=== PATIENT | female | born 1950 | race Caucasian/White ===

== ENCOUNTER 2018-04-17 18:09 | Emergency (ER) | payer MEDICARE, BC ==
[~2018-04-17] VITALS: Ht 162.6 cm; Wt 68.0 kg
[2018-04-17 18:18] VITALS: BP 154/73
== END 2018-04-17 19:16 | disposition home or self-care (01) ==
LOC: ER 18:09
DX: S52.592A Other fractures of lower end of left radius, initial encounter for closed fracture (principal); S63.592A Other specified sprain of left wrist, initial encounter; G89.29 Other chronic pain; M79.7 Fibromyalgia; W19.XXXA Unspecified fall, initial encounter; Y93.89 Activity, other specified; Y92.89 Other specified places as the place of occurrence of the external cause; Y99.9 Unspecified external cause status
CPT/HCPCS: 29125; 73110; 99284

== ENCOUNTER 2018-10-15 08:44 | Observation (INO) | payer MEDICARE, BC ==
[~2018-10-15] VITALS: Ht 162.6 cm; Wt 64.5 kg
[2018-10-15 09:26] LABS: BASOPHILS % (AUTO) 0.6 % (0-1); EOSINOPHILS # (AUTO) 0.1 X10'3 (0-0.9); EOSINOPHILS % (AUTO) 1.8 % (0-6); HEMATOCRIT 40.6 % (35.0-45.0); HEMOGLOBIN 13.4 g/dl (12.0-16.0); LYMPHOCYTES # (AUTO) 1.4 X10'3 (1.1-4.8); LYMPHOCYTES % (AUTO) 26.9 % (21-51); MEAN CORPUSCULAR HGB CONC 33.1 g/dL (33.0-36.5); MEAN CORPUSCULAR VOLUME 87.5 FL (78-98); MEAN PLATELET VOLUME 8.1 FL (7.4-10.4); MONOCYTES # (AUTO) 0.4 X10'3 (0-0.9); MONOCYTES % (AUTO) 8.7 % (2-12); NEUTROPHILS # (AUTO) 3.2 X10'3 (1.8-7.7); PLATELET COUNT 265 X10'3 (140-440); RED BLOOD COUNT 4.64 X10'6 (4.20-5.60); RED CELL DISTRIBUTION WIDTH 15.6 % (11.5-14.5); WHITE BLOOD COUNT 5.1 X10'3 (4.5-11.0)
[2018-10-15 09:43] LABS: ALANINE AMINOTRANSFERASE 24 U/L (12-78); ALBUMIN 3.6 G/DL (3.4-5.0); ALBUMIN/GLOBULIN RATIO 1.1 (1.1-1.5); ALKALINE PHOSPHATASE 68 IU/L (46-116); ANION GAP 8 (8-16); ASPARTATE AMINO TRANSFERASE 18 U/L (10-37); BILIRUBIN,TOTAL 0.4 MG/DL (0.1-1.0); BLOOD UREA NITROGEN 13 MG/DL (7-18); BUN/CREATININE RATIO 15.7 (6.6-38.0); CALCIUM 9.3 MG/DL (8.5-10.1); CHLORIDE 106 MMOL/L (99-107); CREATININE 0.83 MG/DL (0.40-0.90); ETHANOL < 0.010 GM/DL (0.0-0.010); GLUCOSE 88 MG/DL (70-104); MAGNESIUM 2.1 MG/DL (1.5-2.4); PHOSPHORUS 3.2 MG/DL (2.3-4.5); POTASSIUM 3.8 MMOL/L (3.5-5.1); SODIUM 142 MMOL/L (135-145); TOTAL CARBON DIOXIDE 28.5 MMOL/L (24-32); TOTAL PROTEIN 6.8 G/DL (6.4-8.2); eGFR 69 ML/MIN
[2018-10-15 10:13] LABS: CLARITY,URINE CLEAR (Clear); COLOR,URINE YELLOW (Yellow); GLUCOSE, URINE NEGATIVE (Neg); KETONES,URINE TRACE mg/dl (Neg); LEUKOCYTE ESTERASE ,URINE NEGATIVE (Neg); NITRITES, URINE NEGATIVE (Neg); OCCULT BLOOD,URINE NEGATIVE (Neg); PH,URINE 6.5 (4.8-8.0); PROTEIN,URINE NEGATIVE (Neg); UROBILINOGEN,URINE 0.2 E.U/dL (0.2-1.0)
[2018-10-15 10:14] LABS: UA COLLECTION TYPE CLN CATCH MIDSTREAM
[2018-10-15 10:35] LABS: URINE AMPHETAMINE SCREEN NEGATIVE (Neg); URINE BARBITUATE SCREEN NEGATIVE (Neg); URINE BENZODIAZEPINES SCREEN NEGATIVE (Neg); URINE CANNABINOID SCREEN NEGATIVE (Neg); URINE COCAINE SCREEN NEGATIVE (Neg); URINE METHADONE SCREEN NEGATIVE (Neg); URINE OPIATE SCREEN POSITIVE (Neg); URINE PHENCYCLIDINE SCREEN NEGATIVE (Neg)
[2018-10-15] MEDS ORDERED: magnesium hydroxide 30ml (MOM) UD suspension PO PRN (10:45)
[2018-10-15] MEDS ORDERED: acetaminophen 325mg tablet PO PRN ×2 (10:45)
[2018-10-15] MEDS ORDERED: HYDROcodone/acetaminophen 5mg/325mg tablet PO PRN (10:45)
[2018-10-15] MEDS ORDERED: magnesium 2GM in 50ml NS 50 ML IV PRN (10:45)
[2018-10-15] MEDS ORDERED: HYDROcodone/acetaminophen 10/325mg tab PO PRN (10:45)
[2018-10-15] MEDS ORDERED: potassium Cl 40MEQ/NS 500ml 500 ML IV PRN ×2 (10:45)
[2018-10-15] MEDS ORDERED: potassium Cl 20 mEq SR tablet PO PRN ×2 (10:45)
[2018-10-15] MEDS ORDERED: mag hydrox/Alum hydrox/simeth 30ml oral suspension PO PRN (10:45)
[2018-10-15] MEDS ORDERED: ondansetron/PF 4mg/2ml inj IV PRN (10:45)
[2018-10-15] MEDS ORDERED: morphine 2 MG/ML inj. syringe IV PRN (10:45)
[2018-10-15] MEDS ORDERED: magnesium Cl slow-release 64mg tablet PO PRN (10:45)
[2018-10-15] MEDS ORDERED: magnesium 4gm in 100ml NS 100 ML IV PRN (10:45)
[2018-10-15] MEDS: normal saline 1000ml 1,000 ML IV SCH ×2 (11:01→23:10)
[2018-10-15 11:18] LABS: D-DIMER 0.28 MG/L FEU (0-0.50)
[2018-10-15 11:35] VITALS: BP 142/70
--- NOTE | 2018-10-15 11:45 | NUR ---
Received pt report from ILEANA Martinez from ER. Pt to Rm [id number]. VSS upon arrival. Denies pain. A&Ox3, no dizziness or weakness noted, speech is clear. Pt on 24hr tele. Will continue to monitor.
[2018-10-15] MEDS ORDERED: DULO-31 PO (12:30)
[2018-10-15] MEDS ORDERED: ZOLP10TA PO (15:57)
[2018-10-15] MEDS ORDERED: METH500T6 PO (15:57)
[2018-10-15] MEDS ORDERED: TRAM50TA2 PO (15:57)
[2018-10-15] MEDS ORDERED: HYDR-3965 PO (15:57)
[2018-10-15 18:00] VITALS: BP 128/61
--- NOTE | 2018-10-15 18:13 | NUR ---
Problems reprioritized. Patient report given, questions answered & plan of care reviewed with ILEANA Hanna.
--- NOTE | 2018-10-15 18:34 | NUR ---
Patient in room [facility] 4011A. I have received report from BENJI TEJEDA and had the opportunity to ask questions and assume patient care.
[2018-10-15] MEDS: heparin, porcine 5000 units/ml vial SQ SCH (19:46)
[2018-10-15] MEDS: duloxetine 30mg CAPSULE.DR PO SCH (19:47)
[2018-10-15 20:00] VITALS: BP_SYST 137; BP_SYST 144; BP_SYST 154; BP_DIAS 72; BP_DIAS 79; BP_DIAS 80
[2018-10-16] VITALS: BP 144/72
[2018-10-16 04:00] VITALS: BP 157/72
[2018-10-16 05:38] VITALS: BP 123/64
[2018-10-16 06:10] LABS: BASOPHILS % (AUTO) 0.6 % (0-1); EOSINOPHILS # (AUTO) 0.2 X10'3 (0-0.9); EOSINOPHILS % (AUTO) 3.6 % (0-6); HEMATOCRIT 36.9 % (35.0-45.0); HEMOGLOBIN 12.3 g/dl (12.0-16.0); LYMPHOCYTES # (AUTO) 1.9 X10'3 (1.1-4.8); LYMPHOCYTES % (AUTO) 41.6 % (21-51); MEAN CORPUSCULAR HEMOGLOBIN 29.1 PG (27.0-31.0); MEAN CORPUSCULAR HGB CONC 33.3 g/dL (33.0-36.5); MEAN CORPUSCULAR VOLUME 87.3 FL (78-98); MEAN PLATELET VOLUME 8.2 FL (7.4-10.4); MONOCYTES # (AUTO) 0.5 X10'3 (0-0.9); MONOCYTES % (AUTO) 11.4 % (2-12); NEUTROPHILS # (AUTO) 1.9 X10'3 (1.8-7.7); NEUTROPHILS % (AUTO) 42.8 % (42-75); PLATELET COUNT 252 X10'3 (140-440); RED BLOOD COUNT 4.22 X10'6 (4.20-5.60); RED CELL DISTRIBUTION WIDTH 15.4 % (11.5-14.5); WHITE BLOOD COUNT 4.5 X10'3 (4.5-11.0)
[2018-10-16 06:34] LABS: ALBUMIN 3.1 G/DL (3.4-5.0); ANION GAP 6 (8-16); BLOOD UREA NITROGEN 10 MG/DL (7-18); BUN/CREATININE RATIO 14.1 (6.6-38.0); CALCIUM 8.3 MG/DL (8.5-10.1); CHLORIDE 110 MMOL/L (99-107); CHOL/HDL RATIO 2.5 (0.00-4.99); CHOLESTEROL 204 MG/DL (0-200); CREATININE 0.71 MG/DL (0.40-0.90); GLUCOSE 84 MG/DL (70-104); HDL CHOLESTEROL 81 MG/DL (35-60); LDL CHOLESTEROL 114 MG/DL (50-100); POTASSIUM 4.2 MMOL/L (3.5-5.1); SODIUM 143 MMOL/L (135-145); TOTAL CARBON DIOXIDE 27.5 MMOL/L (24-32); TRIGLYCERIDES 73 MG/DL (20-135); eGFR 82 ML/MIN
--- NOTE | 2018-10-16 06:43 | NUR ---
Problems reprioritized. Patient report given, questions answered & plan of care reviewed with JOSEP TEJEDA.
[2018-10-16] MEDS ORDERED: aspirin 325mg tablet PO SCH (08:00)
[2018-10-16] MEDS ORDERED: K and/or MAG REPLACEMENT MC SCH (08:00)
[2018-10-16] MEDS: duloxetine 30mg CAPSULE.DR PO SCH (09:19)
[2018-10-16] MEDS: heparin, porcine 5000 units/ml vial SQ SCH (09:20)
[2018-10-16 10:00] VITALS: BP 131/59
[2018-10-16] MEDS ORDERED: traMADol 50MG tablet PO PRN (12:30)
[2018-10-16] MEDS ORDERED: pantoprazole 40mg Tablet.DR PO ONE (12:35)
[2018-10-16] MEDS ORDERED: aspirin 81mg tab.chew PO SCH (12:59)
--- NOTE | 2018-10-16 13:42 | NUR ---
Page to Dr. Das MESSAGE: [id number] Angie Waller Carotids are up if you want to look and D/C patient Maureen [phone]
--- NOTE | 2018-10-16 15:47 | NUR ---
IV taken out 20 gauge patient tolerated well. Requested lipitor, stated she didn't need it nor the MRI.
== END 2018-10-16 15:46 | disposition home or self-care (01) ==
LOC: ER 08:44 → ENRESERV 12:13 → ORTHO 4S 12:23 → CMPBEDREQ 19:03
PROVIDERS: ADMIT Internal Medicine; ATTEND Internal Medicine
DX: G45.9 Transient cerebral ischemic attack, unspecified (principal); M81.0 Age-related osteoporosis without current pathological fracture; G89.4 Chronic pain syndrome; M48.00 Spinal stenosis, site unspecified; M79.7 Fibromyalgia; Z98.84 Bariatric surgery status
CPT/HCPCS: 36415; 70450; 71045; 80048; 80053; 80061; 80305; 80320; 81003; 83735; 84100; 84484; 85025; 85379; 87070; 92508; 92616; 93005; 93306; 93880; 96372; 97116; 97161; 99284; G0378; J1644; J7030